=== PATIENT | female | born 1965 | race Caucasian/White ===

== ENCOUNTER 2020-01-31 20:27 | Emergency (ER) | payer BC ==
--- NOTE | 2020-01-31 21:32 | EDM.PDOC ---
ED HPI GENERAL MEDICAL PROBLEM - General Chief Complaint: NUTRITION ASSISTANT Problem Stated Complaint: BURNING LOWER STOMACH AND VAGINAL AREA Time Seen by Provider: 01/31/20 21:03 Source of Information: Reports: Patient History Limitations: Reports: No Limitations - History of Present Illness INITIAL COMMENTS - FREE TEXT/NARRATIVE: Mrs. Leonard is a 54-year-old woman with no chronic medical problems, who now presents to the ED stating that she has been experiencing abdominal and vaginal burning sensation since approximately December 30, 2019. She has been seen 6 times at [place] - at the walk-in clinic, by Dr. Obando, and by her PCP. She states that she was initially diagnosed with a UTI and treated with an antibiotic. She was later diagnosed with both oral thrush and a vaginal yeast infection, treated with both oral nystatin and fluconazole. She states that when she drinks the nystatin, it causes a burning sensation in her lower abdomen and vagina, "almost like they are directly connected". She has undergone multiple blood draws, x-rays, and even an MRI, earlier today. A test for H. pylori was negative, but she has been started on Protonix. She was told by her PCP that her pain cannot be treated until the cause is understood, and that the cause will not be understood until they get the test results back. The patient expressed hope that we would be able to diagnose, or at least to treat her pain here today. Other than the above symptoms, the patient denies recent fever, chills, sore throat, ear pain, nasal or sinus congestion, cough, dyspnea, chest pain, palpitations, nausea, vomiting, constipation, diarrhea, recent weight gain or weight loss, recent bloody bowel movements or black bowel movements, recent joint aches, headaches, or rashes. Here in the ED, the patient's initial BP is found to be mildly elevated at 150/ 84, otherwise, she is hemodynamically stable, afebrile, saturating 100% on room air. The patient's PCP is Dr. Gary Collazo. Her [facility] provider is Rubina Pace NP. Ms. Pace has not been made aware of this issue. Vaginal Pain Score (Numeric/FACES): 7 - Related Data Allergies Allergy/AdvReac Type Severity Reaction Status Date / Time ibuprofen [From Motrin] Allergy Cannot Verified 04/21/20 21:08 Remember Home Meds: Home Meds Pantoprazole Sodium [Protonix] 40 mg PO DAILY 01/31/20 [History] Vitamin B Complex with C [Super B With Vitamin C] 1 cap PO DAILY 01/31/20 [ History] Past Medical History - Past Surgical History HEENT Surgical History: Reports: Oral Surgery (wisdom teeth extraction) Social & Family History - Tobacco Use Smoking Status *Q: Never Smoker Second Hand Smoke Exposure: No - Caffeine Use Caffeine Use: Reports: None - Alcohol Use Alcohol Use History: Yes Alcohol Use Frequency: Rarely - Recreational Drug Use Recreational Drug Use: No - Living Situation & Occupation Living situation: Reports: , with Spouse, with Family (Son + granddaughter) Occupation: Unemployed (Laid-off due to the coronavirus pandemic) ED ROS GENERAL - Review of Systems Review Of Systems: Comprehensive ROS is negative, except as noted in HPI. ED EXAM, GENERAL - Physical Exam Exam: See Below Exam Limited By: No Limitations General Appearance: Alert, WD/WN, No Apparent Distress Eye Exam: Bilateral Eye: EOMI, Normal Inspection Ears: Normal External Exam, Hearing Grossly Normal Nose: Normal Inspection Throat/Mouth: Normal Inspection, Normal Lips, Normal Voice, No Airway Compromise Head: Atraumatic, Normocephalic Neck: Normal Inspection, Full Range of Motion Respiratory/Chest: No Respiratory Distress, Lungs Clear, Normal Breath Sounds, No Accessory Muscle Use Cardiovascular: Normal Peripheral Pulses, Regular Rate, Rhythm, No Edema, No Gallop, No JVD, No Murmur, No Rub Peripheral Pulses: 4+: Radial (L), Radial (R) GI/Abdominal: Normal Bowel Sounds, Soft, No Organomegaly, No Distention, No Abnormal Bruit, No Mass, Tender (Generalized, non-focal) (Female) Exam: Normal External Exam, Other (Mild vaginal atrophy). No: Vaginal Bleeding, Vaginal Lesions Rectal (Female) Exam: Deferred Back Exam: Normal Inspection, Full Range of Motion, NT Extremities: Normal Inspection, Normal Range of Motion, No Pedal Edema, Normal Capillary Refill Neurological: Alert, Oriented, Normal Cognition, No Motor/Sensory Deficits Psychiatric: Normal Affect Skin Exam: Warm, Dry, Intact, Normal Color, No Rash Course - Vital Signs Last Recorded V/S: Last Vital Signs Temp 36.4 C 01/31/20 21:03 Pulse 93 01/31/20 21:03 Resp 16 04/21/20 21:03 BP 150/84 H 01/31/20 21:03 Pulse Ox 100 01/31/20 21:03 - Orders/Labs/Meds Orders: Active Orders 24 hr Category Date Time Status CULTURE GENITAL [RM] Stat Lab 01/31/20 21:24 Received CULTURE URINE [RM] Stat Lab 01/31/20 21:38 Received Labs: Laboratory Tests 01/31/20 01/31/20 Range/Units 21:23 22:10 Urine Color Yellow (Yellow) Urine Appearance Clear (Clear) Urine pH 6.0 (5.0-8.0) Ur Specific [place] 1.010 (1.005-1.030) Urine Protein Negative (Negative) Urine Glucose (UA) Negative (Negative) Urine Ketones 2+ H (Negative) Urine Occult Blood Negative (Negative) Urine Nitrite Negative (Negative) Urine Bilirubin Negative (Negative) Urine Urobilinogen 0.2 (0.2-1.0) Ur Leukocyte Esterase 1+ H (Negative) Urine RBC 0-5 (0-5) /hpf Urine WBC 10-20 H (0-5) /hpf Ur Squamous Epith Cells 5-10 H (0-5) /hpf Urine Bacteria Rare (FEW) /hpf Urine Mucus Not seen (FEW) /hpf C trachomatis DNA (PCR) Not detected N gonorrhoeae DNA (PCR) Not detected - Re-Assessments/Exams Free Text/Narrative Re-Assessment/Exam: 01/31/20 21:25 Unfortunately, the patient's expectations are not quite realistic. As she tells it, her abdominal pain and vaginal discomfort have been going on for just over a month, and she has undergone an extensive work-up over 6 visits to [place] including blood work and an MRI just today. The patient acknowledged that Dr. Collazo told her that he will not be able to treat her pain until he understands what the cause is, and he will not know that until he has the results of the tests that he ordered. It's not clear what the patient was expecting from the ED - she said that she just wanted me to fix it. For today's purposes, I have ordered a urinalysis, and when she has provided a urine sample, I will perform a pelvic exam to obtain a wet prep, GC/chlamydia, and vaginal culture. When I have the U/A, wet prep, and GC/chlamydia results back, I will then contact Dr. Collazo, or his cover, to coordinate a course of action. 01/31/20 22:13 On pelvic examination, the patient has some vaginal atrophy, but no visible lesions, bleeding, or discharge. Her parous cervical os closed. A wet prep, vaginal culture, and GC/chlamydia were obtained. 01/31/20 22:18 The patient's urinalysis is remarkable for occult blood negative with 0-5 RBCs, 1+ leukocyte esterase with 10-20 WBCs, nitrate negative with rare bacteria, and 5-10 squamous epithelial cells. I have ordered a urine culture, but her urinalysis is not consistent enough with a UTI to warrant treatment with an antibiotic at this time. 01/31/20 23:02 The patient's wet prep is remarkable for no yeast seen, no trichomonas seen with a negative trichomonas antigen, no clue cells seen, rare WBCs, few RBCs, and rare epithelial cells. 01/31/20 23:23 Although I do not have the GC/chlamydia results yet, they attempted to get in touch with Dr. Lynch to discuss the case, however, his phone went to [employer]. We then contacted Dr. Obando at 23:19. He is familiar with the patient. He could not think of any test that we should do darnell other than those that have already been done, and he did not have any recommendations with respect to diagnosing or treating the patient's current symptoms. 02/01/20 00:25 The patient's GC/chlamydia are both negative. 02/01/20 00:29 Test results discussed with the patient. As above, darnell's work-up is unremarkable. Her pain does not appear to be due to a urogenital problem. Perhaps her blood work or MRI will shed light on the cause. I recommended that she contact the office of Dr. Collazo later today to see if he has those test results back. Departure - Departure Time of Disposition: 00:30 Disposition: Home, Self-Care 01 Condition: Good Clinical Impression: Abdominal pain of unknown etiology, Vaginal pain - Discharge Information *PRESCRIPTION DRUG MONITORING PROGRAM REVIEWED*: Not Applicable *COPY OF PRESCRIPTION DRUG MONITORING REPORT IN PATIENT ERIC: Not Applicable Instructions: Pelvic Pain, Female, [id number], Abdominal Pain, Adult, Easy-to -Read Referrals: Gary Collazo MD [Primary Care Provider] - Rubina Pace NP [Nurse Practitioner] - Forms: ED Department Discharge Additional Instructions: You were seen in the emergency room for over 1 month of abdominal and vaginal pain. Work-up in ER included a urinalysis, a vaginal wet prep, a vaginal GC/chlamydia , as well as a vaginal culture and a urine culture. Your entire work-up was unremarkable. You do not have a urinary tract infection. No vaginal infection was found. The cause of your symptoms remains unknown. We recommend that you follow-up with your PCP, Dr. Gary Collazo, later today , to check on your blood and MRI results. If any other problems, please do not hesitate to return to the ER. Sepsis Event Note - Evaluation Sepsis Screening Result: No Definite Risk - Focused Exam Vital Signs: Vital Signs Temp Pulse Resp BP Pulse Ox 01/31/20 21:03 36.4 C 93 16 150/84 H 100 Date Exam was Performed: 02/01/20 Time Exam was Performed: 02:31 - My Orders Last 24 Hours: My Active Orders 01/31/20 21:24 CULTURE GENITAL [RM] Stat 01/31/20 21:38 CULTURE URINE [RM] Stat - Assessment/Plan Last 24 Hours: My Active Orders 01/31/20 21:24 CULTURE GENITAL [RM] Stat 01/31/20 21:38 CULTURE URINE [RM] Stat
[2020-02-01 00:17] LABS: C. TRACHOMATIS BY PCR NOT DETECTED; N. GONORRHOEAE BY PCR NOT DETECTED
== END 2020-02-01 00:40 | disposition home or self-care (01) ==
LOC: JD.ED 20:27
DX: R10.30 Lower abdominal pain, unspecified (principal); R10.2 Pelvic and perineal pain
CPT/HCPCS: 81001; 87070; 87086; 87210; 87491; 87591; 87808; 99283; 99284